=== PATIENT | female | born 1965 ===

== ENCOUNTER 2019-06-12 10:56 | Emergency (ER) | payer SELFPAY ==
[2019-06-12 11:06] VITALS: BP 147/98
--- NOTE | 2019-06-12 13:04 | Emergency Department Report ---
Chief Complaint: Rectal Pain Stated Complaint: PAIN LEFT SIDE OF BUTTOCK Time Seen by Provider: 06/12/19 12:57 - HPI History of Present Illness: 53 YO AA FEMALE LMP- CURRENT SEVERAL MONTH HX OF RECTAL PAIN DOES NOT HAVE PCP OR GI MD NO N/V/DIARRHEA NO BLOODY STOOLS NO CONSTIPATION DIET NORMAL NO WEIGHT LOSS NORMAL VITAL SIGNS NON OBESE FEMALE NEVER SMOKER DOES NOT DRINK OR DO DRUGS NO FAM HX COLON CA DAD ALIVE IN [place] ? CAUSES "COMPLICATIONS" IS WHAT PT WAS TOLD HAS TRIED OTC HEMOR. MEDS WITH NO IMPROVEMENT PMH NONE PSH NONE RX NONE - ROS Review of Systems: RECTAL PAIN FOR MONTHS NO BLEEDING PT STARTED MENSES SINCE HERE IN THE ER AND SHE DOES NOT WANT TO DISROBE - Exam Vital Signs: Vital Signs 06/12/19 11:04 Temperature 97.8 F Pulse Rate 80 Respiratory 18 Rate Blood Pressure 147/98 O2 Sat by Pulse 100 Oximetry Physical Exam: A/O NO FOCAL NEURO DEF APPEARS HEALTHY MSE screening note: Focused history and physical exam performed. Due to findings the following was ordered: NO IMMEDIATE LIFE THREAT VSS NO BLEEDING A/C RECTAL PAIN PT EDUCATED ON NEED TO SEE A GI MD MSE, OUT- WITH GI REFERRAL SHE DOES VERBALIZE UNDERSTANDING OF THE IMPORTANCE TO SEE A GI MD TIMI Patient discussed with doctor:: ZINA PHILLIPS ED Disposition for MSE Clinical Impression: Rectal pain, chronic Disposition: - TO HOME OR SELFCARE Is pt being admited?: No Does the pt Need Aspirin: No Condition: Stable Instructions: Chronic Pain (ED) Referrals: YUAN MAYORGA MD [Staff Physician] - 3-5 Days TIP WHITAKER MD [Staff Physician] - 3-5 Days TANNA GILBERT MD [Staff Physician] - 3-5 Days EUNICE ORTEGA MD [Staff Physician] - 3-5 Days Time of Disposition: 13:03
== END 2019-06-12 13:05 | disposition home or self-care (01) ==
LOC: ED 10:56
DX: K62.89 Other specified diseases of anus and rectum (principal); G89.29 Other chronic pain
CPT/HCPCS: 99281